=== PATIENT | female | born 1955 | race Two or more races ===

== ENCOUNTER 2023-12-31 02:02 | Inpatient (IN) | payer OTHER ==
[~2023-12-31] VITALS: Ht 160 cm; Wt 59.0 kg
[2023-12-31] MEDS ORDERED: CLONAZEPAM1 MG PO (02:44)
[2023-12-31] MEDS ORDERED: PAXIL20 MG PO (02:44)
[2023-12-31] MEDS ORDERED: PRILOSEC OTC20 MG PO (02:44)
[2023-12-31] MEDS ORDERED: NORVASC2.5 M1 PO (02:45)
[2023-12-31] MEDS ORDERED: FAMOTIDINE/PF 20 MG in 0.9 % SODIUM CHLORIDE 8 ML IV PUSH STA (03:56)
[2023-12-31] MEDS ORDERED: 0.9 % SODIUM CHLORIDE 1,000 ML IV SCH ×2 (04:00→17:45)
[2023-12-31] MEDS ORDERED: MORPHINE SULFATE 4 MG/ML VIAL IV PRN (04:00)
[2023-12-31 08:00] LABS: PH,URINE 5.5 (5.0-8.0); URINE APPEARANCE Cloudy; URINE BILIRRUBIN Negative (NEGATIVE); URINE BLOOD Small; URINE COLOR Yellow; URINE GLUCOSE Negative (NEGATIVE); URINE LEUKOCYTE Moderate; URINE NITRATE Negative; URINE PROTEIN Negative (NEGATIVE)
[2023-12-31 08:10] LABS: ALBUMIN 1.8 gm/dL (3.4-5.0); BILIRUBIN TOTAL 0.28 mg/dL (0.3-1.2); CALCIUM 8.6 mg/dL (8.5-10.1); CREATININE SERUM 0.36 mg/dL (0.55-1.02); GFR 179.79; GLOBULINA 4.4 G/DL (2.4-3.5); POTASSIUM 3.25 mEq/L (3.5-5.1); TOTAL PROTEIN 6.2 gm/dL (6.4-8.2)
[2023-12-31 08:11] LABS: URINE EPITHELIAL CELLS 12.2 uL (0.0-38.8); URINE RBC 14.5 uL (0.0-20.8); URINE WBC 87.7 uL (0.0-23.2)
[2023-12-31 08:16] LABS: URINE BACTERIA > 9821.2 uL (0.0-1933)
[2023-12-31] MEDS ORDERED: AMLODIPINE BESYLATE 2.5 MG TABLET PO SCH (09:09)
[2023-12-31] MEDS ORDERED: CLONAZEPAM 1 MG TABLET PO ONE (09:15)
[2023-12-31 09:20] LABS: MEAN CELL VOLUME 75.8 fL (80.00-100.00); MEAN CORPUSCULAR HGB CONC 33.1 g/dl (32.0-36.0); PLATELET COUNT 450 K/uL (150-450); RED BLOOD COUNT 3.11 M/uL (4.00-6.00); RED CELL DISTRIBUTION WIDTH 17.1 % (11.5-14.5)
[2023-12-31 09:28] LABS: INR 1.05; PARTIAL THROMBOPLASTIN TIME 33.8 SECONDS (22.0-34.0)
[2023-12-31 09:56] LABS: HEMATOCRIT 23.5 % (36.0-45.00)
[2023-12-31 11:44] LABS: HEMOGLOBIN 7.8 g/dL (12.0-15.00)
[2023-12-31] MEDS ORDERED: ZOLOFT100 MG PO (16:20)
[2023-12-31] MEDS ORDERED: ACETAMINOPHEN 500 MG GEL..CAP PO PRN (17:45)
[2023-12-31] MEDS ORDERED: ONDANSETRON HCL 4 MG in 0.9 % SODIUM CHLORIDE 50 ML IV PRN (17:45)
[2023-12-31] MEDS ORDERED: POTASSIUM CHLORIDE/D5W 1,000 ML IV ONE (17:45)
[2023-12-31] MEDS ORDERED: OxyCODONE HCL/APAP UD (PERCOCET) PO PRN (17:45)
[2023-12-31] MEDS ORDERED: CIPROFLOXACIN IN 5 % DEXTROSE 200 ML IV SCH (21:00)
[2023-12-31 23:28] LABS: INR 1.09; PARTIAL THROMBOPLASTIN TIME 33.3 SECONDS (22.0-34.0); PROTHROMBIN TIME 11.4 SECONDS (9.0-11.5)
[2024-01-01 00:14] LABS: COL ADP 72 SECONDS (56-102); COL EPI 107 SECONDS (82-175)
[2024-01-01] MEDS ORDERED: AMINO ACIDS 1 EACH TABLET PO SCH (01:00)
[2024-01-01] MEDS ORDERED: CLONAZEPAM 1 MG TABLET PO SCH (09:00)
[2024-01-01] MEDS ORDERED: PAROXETINE HCL 20 MG TABLET PO SCH (09:00)
[2024-01-01] MEDS ORDERED: PANTOPRAZOLE SODIUM 40 MG/VIAL VIAL IV SCH (09:00)
[2024-01-01] MEDS ORDERED: SODIUM HYPOCHLORITE 1OZ TOP SCH (09:15)
[2024-01-01] MEDS ORDERED: DIATRIZOATE MEGLUMINE, SODIUM 30 ML BOTTLE PO NR (09:30)
[2024-01-01] MEDS ORDERED: MAGNESIUM SULFATE IN WATER 50 ML IV NR (10:15)
[2024-01-01] MEDS ORDERED: POTASSIUM CHLORIDE IN WATER 100 ML IV SCH (12:00)
[2024-01-01] MEDS ORDERED: CLONAZEPAM 0.5 MG TABLET PO ONE (13:45)
[2024-01-01] MEDS ORDERED: FUROsemide 20 MG/2 ML VIAL IV SCH (13:45)
[2024-01-01] MEDS ORDERED: CLONAZEPAM 1 MG TABLET PO STA (16:09)
[2024-01-02] MEDS ORDERED: METROnidazole 500 MG TABLET PO SCH (09:00)
[2024-01-02] MEDS ORDERED: levoFLOXacin IN DEXTROSE 5 % 5 MG/ML PIGGYBAG IV SCH (09:00)
[2024-01-02] MEDS ORDERED: POTASSIUM CHLORIDE 20MEQ/100ML H2O PB IV NR (10:15)
[2024-01-02] MEDS ORDERED: MAGNESIUM SULFATE IN WATER 50 ML IV NR (10:15)
[2024-01-02] MEDS ORDERED: BARIUM SULFATE 450 ML ORAL.SUSP PO ONE (10:15)
[2024-01-02 10:38] LABS: HEMATOCRIT 25.2 % (36.0-45.00); MEAN CELL VOLUME 76.7 fL (80.00-100.00); MEAN CORPUSCULAR HGB CONC 33.6 g/dl (32.0-36.0); PLATELET COUNT 405 K/uL (150-450); RED BLOOD COUNT 3.29 M/uL (4.00-6.00); RED CELL DISTRIBUTION WIDTH 18.4 % (11.5-14.5)
[2024-01-02 10:45] LABS: ERYTHROCYTE SEDIMENTATION RATE 68 mm/hr; MEAN CORPUSCULAR HEMOGLOBIN 25.8 pg (27.00-32.0)
[2024-01-02 10:46] LABS: HEMOGLOBIN 8.5 g/dL (12.0-15.00)
[2024-01-02 11:20] LABS: CALCIUM 8.3 mg/dL (8.5-10.1); POTASSIUM 4.38 mEq/L (3.5-5.1)
[2024-01-02 11:21] LABS: C-REACTIVE PROTEIN 7.33 MG/DL (0.00-0.29); CREATININE SERUM 0.28 mg/dL (0.55-1.02); GFR 240.29
[2024-01-02] MEDS ORDERED: VITAMIN B COMPLEX 1 EACH PO SCH (17:00)
[2024-01-03] MEDS ORDERED: SOD FERRIC GLUC COMPLX/SUCROSE 62.5 MG/5 ML AMPUL IV SCH (09:00)
[2024-01-03] MEDS ORDERED: Cyanocobalamin/Mecobalamin 1 TAB.SL SL SCH (09:00)
[2024-01-03] MEDS ORDERED: MEROPENEM 500 MG/VIAL VIAL IV SCH (12:00)
[2024-01-03] MEDS ORDERED: OxyCODONE HCL/APAP UD (PERCOCET) PO PRN (15:45)
[2024-01-03 23:07] LABS: HEMATOCRIT 32.7 % (36.0-45.00); HEMOGLOBIN 10.9 g/dL (12.0-15.00); MEAN CELL VOLUME 80.5 fL (80.00-100.00); MEAN CORPUSCULAR HEMOGLOBIN 26.8 pg (27.00-32.0); MEAN CORPUSCULAR HGB CONC 33.3 g/dl (32.0-36.0); PLATELET COUNT 366 K/uL (150-450); RED BLOOD COUNT 4.06 M/uL (4.00-6.00); RED CELL DISTRIBUTION WIDTH 17.8 % (11.5-14.5)
[2024-01-04 12:55] LABS: MAGNESIUM 1.6 mg/dL (1.8-2.4)
[2024-01-04 13:07] LABS: FERRITIN 333.5 NG/ML (8-252)
[2024-01-04 14:24] LABS: FOLIC ACID 2.11 ng/ml (4.78-20)
[2024-01-05] MEDS ORDERED: POVIDONE-IODINE 0.75 OZ PACKET TOP ONE (13:57)
[2024-01-05] MEDS ORDERED: ISOPROPYL ALCOHOL 30 ML OUNCE TOP ONE (13:58)
[2024-01-05] MEDS ORDERED: KETOROLAC TROMETHAMINE 60 MG VIAL IM ONE (16:15)
[2024-01-05] MEDS ORDERED: TRANEXAMIC ACID 100MG/1ML (1000MG) AMPUL IV ONE (16:15)
[2024-01-05] MEDS ORDERED: BUPIVACAINE HCL/MPF 0.5% 30ML VIAL ONE (16:16)
[2024-01-05] MEDS ORDERED: VANCOMYCIN HCL 1,000 MG VIAL ONE (16:16)
[2024-01-05] MEDS ORDERED: LIDOCAINE HCL 1%/EPINEPHRINE 20ML VIAL IJ ONE (16:16)
[2024-01-05] MEDS ORDERED: POLYMYXIN B SULFATE 500,000 U VIAL ONE (16:53)
[2024-01-05] MEDS ORDERED: HEPARIN SODIUM,PORCINE 500 UNITS/5 ML VIAL IV ONE ×2 (17:35→19:15)
[2024-01-05] MEDS ORDERED: SODIUM CHLORIDE 0.45 % 1,000 ML IV SCH (18:15)
[2024-01-06 07:46] LABS: HEMATOCRIT 31.2 % (36.0-45.00); HEMOGLOBIN 10.2 g/dL (12.0-15.00); MEAN CELL VOLUME 79.8 fL (80.00-100.00); MEAN CORPUSCULAR HEMOGLOBIN 26.2 pg (27.00-32.0); MEAN CORPUSCULAR HGB CONC 32.8 g/dl (32.0-36.0); PLATELET COUNT 322 K/uL (150-450); RED BLOOD COUNT 3.91 M/uL (4.00-6.00); RED CELL DISTRIBUTION WIDTH 18.4 % (11.5-14.5)
[2024-01-06] MEDS ORDERED: MULTIVIT-MIN/IRON FUM/FOLIC AC 1 TAB TABLET PO SCH (09:00)
[2024-01-06 09:11] LABS: CA 125 33.7 U/mL (0.0-38.1); CA 15-3 13.3 U/mL (0.0-25.0); CA 19-9 < 2 U/mL (0-35)
[2024-01-07 06:28] LABS: HEMATOCRIT 31.2 % (36.0-45.00); HEMOGLOBIN 10.1 g/dL (12.0-15.00); MEAN CELL VOLUME 80.8 fL (80.00-100.00); MEAN CORPUSCULAR HEMOGLOBIN 26.1 pg (27.00-32.0); MEAN CORPUSCULAR HGB CONC 32.3 g/dl (32.0-36.0); PLATELET COUNT 305 K/uL (150-450); RED BLOOD COUNT 3.86 M/uL (4.00-6.00); RED CELL DISTRIBUTION WIDTH 17.9 % (11.5-14.5)
[2024-01-07 07:59] LABS: CALCIUM 8.6 mg/dL (8.5-10.1); GFR 354.29; POTASSIUM 3.31 mEq/L (3.5-5.1)
[2024-01-07 08:09] LABS: CREATININE SERUM 0.2 mg/dL (0.55-1.02)
[2024-01-08] MEDS ORDERED: AMLODIPINE BESYLATE 2.5 MG TABLET PO SCH (09:00)
[2024-01-08] MEDS ORDERED: CEFAZOLIN SODIUM 1,000 MG VIAL IV SCH (14:15)
[2024-01-08] MEDS ORDERED: ONDANSETRON HCL 2 MG/ML VIAL IV PRN (16:30)
[2024-01-08] MEDS ORDERED: SODIUM CHLORIDE 0.45 % 1,000 ML IV SCH (16:30)
[2024-01-08] MEDS ORDERED: ONDANSETRON 4 MG TAB.RAPDIS PO PRN (16:30)
[2024-01-08] MEDS ORDERED: SUGAMMADEX SODIUM 200 MG/2 ML VIAL IV ONE (16:30)
[2024-01-09] MEDS ORDERED: AMLODIPINE BESYLATE 10 MG TABLET PO SCH (09:00)
[2024-01-09] MEDS ORDERED: POTASSIUM CHLORIDE 20MEQ/100ML H2O PB IV NR (09:24)
[2024-01-10 07:54] LABS: HEMATOCRIT 25.3 % (36.0-45.00); MEAN CELL VOLUME 80.6 fL (80.00-100.00); MEAN CORPUSCULAR HGB CONC 33.5 g/dl (32.0-36.0); PLATELET COUNT 215 K/uL (150-450); RED BLOOD COUNT 3.15 M/uL (4.00-6.00); RED CELL DISTRIBUTION WIDTH 17.9 % (11.5-14.5)
[2024-01-10 08:05] LABS: MEAN CORPUSCULAR HEMOGLOBIN 26.9 pg (27.00-32.0)
[2024-01-10 09:50] LABS: HEMOGLOBIN 8.5 g/dL (12.0-15.00)
[2024-01-10] MEDS ORDERED: FUROsemide 20 MG/2 ML VIAL IV SCH (10:45)
[2024-01-10] MEDS ORDERED: FOLIC ACID 5 MG/ML VIAL IV SCH (14:59)
[2024-01-11] MEDS ORDERED: OxyCODONE HCL/APAP UD (PERCOCET) PO PRN (13:15)
[2024-01-12 06:56] LABS: HEMATOCRIT 35.2 % (36.0-45.00); HEMOGLOBIN 11.8 g/dL (12.0-15.00); MEAN CELL VOLUME 83.4 fL (80.00-100.00); MEAN CORPUSCULAR HGB CONC 33.6 g/dl (32.0-36.0); PLATELET COUNT 214 K/uL (150-450); RED BLOOD COUNT 4.22 M/uL (4.00-6.00)
== END 2024-01-14 11:14 | disposition home or self-care (01) | DRG 521 ==
LOC: ER 02:02 → SURG 18:42 → SEC-K 18:42 → SURG 22:45 → SURH 01-04 20:16 → SURG 01-05 11:04
PROVIDERS: General Practice; Orthopaedic Surgery; ADMIT Internal Medicine; ATTEND Internal Medicine
PROC: BP2 Imaging, Non-Axial Upper Bones, Computerized Tomography (CT Scan) (ICD-10-PCS; 2023-12-31)
PROC: BW21YZZ Computerized Tomography (CT Scan) of Abdomen and Pelvis using Other Contrast (ICD-10-PCS; 2024-01-01)
PROC: BW24YZZ Computerized Tomography (CT Scan) of Chest and Abdomen using Other Contrast (ICD-10-PCS; 2024-01-01)
PROC: BQ31ZZZ Magnetic Resonance Imaging (MRI) of Left Hip (ICD-10-PCS; 2024-01-01)
PROC: B24BYZZ Ultrasonography of Heart with Aorta using Other Contrast (ICD-10-PCS; 2024-01-01)
PROC: 0SRS0JZ Replacement of Left Hip Joint, Femoral Surface with Synthetic Substitute, Open Approach (ICD-10-PCS; principal; 2024-01-05 07:00)
DX: S72.002A Fracture of unspecified part of neck of left femur, initial encounter for closed fracture (principal); L89.154 Pressure ulcer of sacral region, stage 4; S42.309A Unspecified fracture of shaft of humerus, unspecified arm, initial encounter for closed fracture; N39.0 Urinary tract infection, site not specified; W19.XXXA Unspecified fall, initial encounter; Y93.9 Activity, unspecified; Y92.9 Unspecified place or not applicable; Y99.9 Unspecified external cause status; I10 Essential (primary) hypertension; I25.10 Atherosclerotic heart disease of native coronary artery without angina pectoris; D53.9 Nutritional anemia, unspecified

== ENCOUNTER 2024-02-14 08:57 | Outpatient (CLI) | payer OTHER ==
[~2024-02-14 08:57] MED LIST: CLONAZEPAM1 MG PO; NORVASC2.5 M1 PO; PAXIL20 MG PO; PRILOSEC OTC20 MG PO; ZOLOFT100 MG PO
== END 2024-02-14 09:05 | disposition home or self-care (01) ==
LOC: RAD 08:57
PROVIDERS: ATTEND Orthopaedic Surgery
DX: S42.412D Displaced simple supracondylar fracture without intercondylar fracture of left humerus, subsequent encounter for fracture with routine healing (principal); Z96.642 Presence of left artificial hip joint